=== PATIENT | female | born 1965 | race Caucasian/White ===

== ENCOUNTER 2019-05-17 13:20 | Emergency (ER) | payer SELFPAY ==
[~2019-05-17] VITALS: Ht 165.1 cm; Wt 60.0 kg
[2019-05-17 14:05] LABS: HEMATOCRIT 34.3 % (37.0-47.0); HEMOGLOBIN 11.2 g/dl (12.0-16.0); IMMATURE GRANULOCYTES 0.5 % (0.0-5.0); MEAN CELL VOLUME 101.2 fL CALC (80.0-100.0); MEAN CORPUSCULAR HGB CONC 32.7 g/L CALC (32.0-36.0); NEUT# 8.88 thou/uL (2.00-7.15); RED BLOOD COUNT 3.39 mill/uL (4.20-5.60); RED CELL DISTRI WIDTH 15.6 % (11.5-15.5)
[2019-05-17 14:21] LABS: ALBUMIN 2.6 g/dL (3.2-5.0); ALKALINE PHOSPHATASE 157 u/l (38-126); ANION GAP 12 (6-22 (CALC)); BILIRUBIN, TOTAL 0.9 mg/dL (0.0-1.4); CARBON DIOXIDE 27 mmol/l (22-30); CHLORIDE 99 mmol/l (95-108); CREATININE 0.3 mg/dL (0.5-1.0); ETHYL ALCOHOL 119 mg/dl (0-30); GFR > 60 ML/MIN (>=60 (CALC)); GFR FOR AFR.AMER. > 60 ML/MIN (>=60 (CALC)); LIPASE 108 u/l (23-300); POTASSIUM 3.1 mmol/l (3.5-5.1); SGOT/AST 99 u/l (14-36); SODIUM 135 mmol/l (137-146); TOTAL PROTEIN 6.7 g/dL (6.3-8.2)
[2019-05-17 14:25] LABS: BUN 2 mg/dL (7-17); BUN/CREATININE RATIO 7 (12-20 (CALC))
[2019-05-17 14:26] LABS: ACT PARTIAL THROMBO TIME 24.5 SECONDS (20.0-32.5); INTERNATIONAL NORMALIZED RATIO 1.4 RATIO (0.7-1.3); PROTHROMBIN TIME 14.1 SECONDS (9.0-12.5)
[2019-05-17 15:36] LABS: URINE BLOOD DIPSTICK NEGATIVE (NEGATIVE); URINE GLUCOSE - DIPSTICK NEGATIVE (NEGATIVE); URINE KETONE TRACE mg/dL (NEGATIVE); URINE LEUK ESTERASE NEGATIVE (NEGATIVE); URINE PH 5.5 (4.5-8.0); URINE PROTEIN - DIPSTICK 30 mg/dL (NEG-TRACE); URINE SPECIFIC GRAVITY >=1.030
[2019-05-17 15:37] LABS: URINE BILIRUBIN - DIPSTICK NEGATIVE (NEGATIVE); URINE COLOR DK. YELLOW; URINE NITRITE - DIPSTICK POSITIVE (Negative)
[2019-05-17 15:40] LABS: BARBITURATES NEGATIVE (NEGATIVE); COCAINE NEGATIVE (NEGATIVE); METHADONE NEGATIVE (NEGATIVE); OXCYCODONE NEGATIVE (NEGATIVE); TETRAHYDROCANNABIONOL NEGATIVE (NEGATIVE); TRICYLIC ANTIDEPRESSANTS NEGATIVE (NEGATIVE)
[2019-05-17 15:52] LABS: URINE BACTERIA MANY hpf; URINE MUCUS MANY hpf (NONE-FEW); URINE SQUAMOUS EPITHELIAL CELL FEW EPI/hpf (0-FEW)
[2019-05-17] MEDS ORDERED: KEFLEX500 M1 PO (16:31)
[2019-05-17 16:43] VITALS: BP 94/69
[2019-05-18] MEDS ORDERED: KEFLEX500 M1 PO (16:47)
== END 2019-05-17 17:30 | disposition home or self-care (01) | DRG 690 ==
LOC: ED 13:20
DX: N39.0 Urinary tract infection, site not specified (principal); B19.10 Unspecified viral hepatitis B without hepatic coma; K70.31 Alcoholic cirrhosis of liver with ascites; F10.20 Alcohol dependence, uncomplicated; B19.20 Unspecified viral hepatitis C without hepatic coma; F17.210 Nicotine dependence, cigarettes, uncomplicated; B96.1 Klebsiella pneumoniae [K. pneumoniae] as the cause of diseases classified elsewhere; G89.29 Other chronic pain; M54.5 Low back pain

== ENCOUNTER 2020-07-02 11:06 | Emergency (ER) | payer OTHER ==
[~2020-07-02] VITALS: Ht 165.1 cm; Wt 42.0 kg
[~2020-07-02 11:06] MED LIST: KEFLEX500 M1 PO
[2020-07-02] MEDS ORDERED: HYDROXYZINE HCL25 M1 PO (11:20)
[2020-07-02] MEDS ORDERED: VENLAFAXINE150 M1 PO (11:21)
[2020-07-02] MEDS ORDERED: OMEPRAZOLE DR20 MG PO (11:21)
[2020-07-02] MEDS ORDERED: SPIRONOLACT25 MG PO (11:22)
[2020-07-02] MEDS ORDERED: COMPAZINE10 MG PO (11:22)
[2020-07-02 11:23] LABS: HEMATOCRIT 24.6 % (37.0-47.0); HEMOGLOBIN 7.3 g/dl (12.0-16.0); IMMATURE GRANULOCYTES 0.8 % (0.0-5.0); MEAN CORPUSCULAR HGB 26.4 pG CALC (26.0-32.0); MEAN CORPUSCULAR HGB CONC 29.7 g/dL CAL (32.0-36.0); NEUT# 4.52 thou/uL (2.00-7.15); RED BLOOD COUNT 2.76 mill/uL (4.20-5.60); RED CELL DISTRI WIDTH 19.8 % (11.5-15.5)
[2020-07-02] MEDS ORDERED: LASIX 20 MG TAB20 MG PO (11:23)
[2020-07-02 11:37] LABS: ALBUMIN 2.8 g/dL (3.2-5.0); ALKALINE PHOSPHATASE 148 u/l (38-126); ANION GAP 10 (6-22 (CALC)); BILIRUBIN, TOTAL 0.7 mg/dL (0.0-1.4); BUN 2 mg/dL (7-17); BUN/CREATININE RATIO 4 (12-20 (CALC)); CARBON DIOXIDE 25 mmol/l (22-30); CHLORIDE 109 mmol/l (95-108); CREATININE 0.5 mg/dL (0.5-1.0); GFR > 60 ML/MIN (>=60 (CALC)); GFR FOR AFR.AMER. > 60 ML/MIN (>=60 (CALC)); LIPASE 206 u/l (23-300); POTASSIUM 3.7 mmol/l (3.5-5.1); SGOT/AST 73 u/l (14-36); SODIUM 141 mmol/l (137-146); TOTAL PROTEIN 7.6 g/dL (6.3-8.2)
[2020-07-02 11:48] LABS: ETHYL ALCOHOL 354 mg/dl (0-30); MEAN CELL VOLUME 89.1 fL CALC (80.0-100.0)
[2020-07-02 12:00] LABS: URINE BILIRUBIN - DIPSTICK NEGATIVE (NEGATIVE); URINE BLOOD DIPSTICK NEGATIVE (NEGATIVE); URINE COLOR YELLOW; URINE GLUCOSE - DIPSTICK NEGATIVE (NEGATIVE); URINE KETONE NEGATIVE (NEGATIVE); URINE NITRITE - DIPSTICK NEGATIVE (Negative); URINE PROTEIN - DIPSTICK NEGATIVE (NEG-TRACE); URINE SPECIFIC GRAVITY <=1.005; URINE UROBILINOGEN - DIPSTICK 0.2 E.U./dL (0.2)
[2020-07-02 12:22] LABS: ACT PARTIAL THROMBO TIME 24.5 SECONDS (20.0-32.5); INTERNATIONAL NORMALIZED RATIO 1.1 RATIO (0.7-1.3); PROTHROMBIN TIME 11.1 SECONDS (9.0-12.5)
[2020-07-02 12:54] LABS: URINE LEUK ESTERASE TRACE (NEGATIVE)
[2020-07-02] MEDS ORDERED: CIPROFLOXACN500 MG PO (14:28)
[2020-07-02] MEDS ORDERED: METRONIDAZOL500 MG PO (14:28)
[2020-07-02 15:00] VITALS: BP 94/61
== END 2020-07-02 15:00 | disposition home or self-care (01) ==
LOC: ED 11:06
DX: K52.9 Noninfective gastroenteritis and colitis, unspecified (principal); K70.30 Alcoholic cirrhosis of liver without ascites; D64.9 Anemia, unspecified; K70.40 Alcoholic hepatic failure without coma; B19.20 Unspecified viral hepatitis C without hepatic coma; B19.10 Unspecified viral hepatitis B without hepatic coma; F17.210 Nicotine dependence, cigarettes, uncomplicated; Z86.718 Personal history of other venous thrombosis and embolism
CPT/HCPCS: Q9967; S0164